=== PATIENT | female | born 1975 | race Caucasian/White ===

== ENCOUNTER 2025-01-08 15:27 | Emergency (ER) | payer SELFPAY ==
[2025-01-08 15:31] VITALS: BP 139/83
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
[2025-01-08] MEDS: TYLENOL 1000 MG PO (16:48)
== END 2025-01-08 18:08 | disposition home or self-care (01) ==
LOC: EMR 15:27
PROVIDERS: EMERGENCY PHYSICIAN Emergency Medicine; FAMILY PHYSICIAN Internal Medicine
DX: S16.1XXA Strain of muscle, fascia and tendon at neck level, initial encounter (principal); S29.012A Strain of muscle and tendon of back wall of thorax, initial encounter; T20.19XA Burn of first degree of multiple sites of head, face, and neck, initial encounter; W22.11XA Striking against or struck by driver side automobile airbag, initial encounter; V43.52XA Car driver injured in collision with other type car in traffic accident, initial encounter; E04.1 Nontoxic single thyroid nodule
CPT/HCPCS: 99284; 70450; 72125

== ENCOUNTER → 2025-01-19 09:40 | Outpatient (REF) | payer BC, SELFPAY | LOC: HWRAD 09:40 | PROVIDERS: ATTENDING PHYSICIAN Internal Medicine | DX: E04.1 Nontoxic single thyroid nodule (principal); F07.81 Postconcussional syndrome | CPT/HCPCS: 76536 ==

== ENCOUNTER → 2025-03-31 15:47 | Outpatient (REF) | payer BC, SELFPAY | LOC: HWRAD 15:47 | PROVIDERS: ATTENDING PHYSICIAN Internal Medicine | DX: Z82.61 Family history of arthritis (principal) | CPT/HCPCS: 73130 ==